=== PATIENT | male | born 1990 | race Caucasian/White ===

== ENCOUNTER 2017-04-27 04:07 | Emergency (ER) | payer OTHER ==
[2017-04-27] MEDS ORDERED: SUMAtriptan 6 MG/0.5 ML VIAL SC ONE (04:40)
--- NOTE | 2017-04-27 04:43 | EDPHY ---
H & P Stated Complaint: migraine aura since 2 am, nausea, shakey Time Seen by Provider: 04/27/17 04:30 HPI/ROS: CHIEF COMPLAINT: Migraine HISTORY OF PRESENT ILLNESS: Patient is a 26-year-old man who comes to the emergency department complaining of an aura and migraine. He states that he has these only a few times a year. Today however the aura has come and gone 3 times. His aura manifests as light discoloration in the shape of a backwards C in both eyes. It lasts for about 20 minutes at a time. He did develop a headache that almost completely resolved with ibuprofen but is still having auras intermittently. New neck pain or stiffness. He denies fevers. He denies injury. REVIEW OF SYSTEMS: Constitutional: denies: chills, fever, recent illness, recent injury EENTM: denies: blurred vision, double vision, nose congestion Respiratory: denies: cough, shortness of breath Cardiac: denies: chest pain, irregular heart rate, lightheadedness, palpitations Gastrointestinal/Abdominal: denies: abdominal pain, diarrhea, nausea, vomiting, blood streaked stools Genitourinary: denies: dysuria, frequency, hematuria, pain Musculoskeletal: denies: joint pain, muscle pain Skin: denies: lesions, rash, jaundice, bruising Neurological: See HPI denies: numbness, paresthesia, tingling, dizziness, weakness Hematologic/Lymphatic: denies: blood clots, easy bleeding, easy bruising Immunologic/allergic: denies: HIV/AIDS, transplant EXAM: GENERAL: Well-appearing, well-nourished and in no acute distress. HEAD: Atraumatic, normocephalic. EYES: Pupils equal round and reactive to light, extraocular movements intact, sclera anicteric, conjunctiva are normal. Retina appear Normal ENT: TMs normal, nares patent, oropharynx clear without exudates. Moist mucous membranes. NECK: Normal range of motion, supple without lymphadenopathy or JVD. LUNGS: Breath sounds clear to auscultation bilaterally and equal. No wheezes rales or rhonchi. HEART: Regular rate and rhythm without murmurs, rubs or gallops. ABDOMEN: Soft, nontender, normoactive bowel sounds. No guarding, no rebound. No masses appreciated. BACK: No CVA tenderness, no spinal tenderness, step-offs or deformities EXTREMITIES: Normal range of motion, no pitting or edema. No clubbing or cyanosis. NEUROLOGICAL: Cranial nerves II through XII grossly intact. Normal speech, normal gait. 5/5 strength, normal movement in all extremities, normal sensation , negative Romberg, no primary drift PSYCH: Normal mood, normal affect. SKIN: Warm, dry, normal turgor, no visible rashes or lesions. Source: Patient Exam Limitations: No limitations - Personal History Current Tetanus/Diphtheria Vaccine: Unsure Current Tetanus Diphtheria and Acellular Pertussis (TDAP): Unsure - Medical/Surgical History Hx Asthma: No Hx Chronic Respiratory Disease: No Hx Diabetes: No Hx Cardiac Disease: No Hx Renal Disease: No Hx Cirrhosis: No Hx Alcoholism: No Hx HIV/AIDS: No Hx Splenectomy or Spleen Trauma: No Other PMH: migraines - Family History Significant Family History: No pertinent family hx - Social History Smoking Status: Former smoker Alcohol Use: Sober Drug Use: None Constitutional: Initial Vital Signs Temperature (C) 36.4 C 04/27/17 04:09 Heart Rate 92 04/27/17 04:09 Respiratory Rate 18 04/27/17 04:09 Blood Pressure 142/95 H 04/27/17 04:09 O2 Sat (%) 97 04/27/17 04:09 O2 Delivery Mode Room Air Allergies/Adverse Reactions: No Known Allergies Allergy (Unverified 04/27/17 04:12) Home Medications: Medication Instructions Recorded NK [No Known Home Meds] 04/27/17 Medical Decision Making ED Course/Re-evaluation: 5:15 a.m. the patient is feeling somewhat better although he still has an aura occasionally. He is requesting to go home. His exam and vital signs remained stable. I will discharge her with Phenergan that he may take when he gets home. He is happy with this plan and declines further testing. Differential Diagnosis: Partial list of the Differential diagnosis considered include but were not limited to; migraine aura, headache, tension headache, infection and although unlikely based on the history and physical exam, I also considered trauma, stroke, seizure, aneurysm, cancer. I discussed these differential diagnoses and the plan with the patient as well as the usual and expected course. The patient understands that the diagnosis is provisional and that in medicine we are not always correct and that further workup is often warranted. Usual and customary warnings were given. All of the patient's questions were answered. The patient was instructed to return to the emergency department should the symptoms at all worsen or return, otherwise to followup with the physician as we discussed. - Data Points Laboratory Results: 04/27/17 04:45 POC Glucose 118 mg/dL H mg/dL (70-100) Medications Given: Discontinued Medications Promethazine HCl (Phenergan 25 Mg Prepack #4) 1 btl TAKEHOME EDNOW ONE Stop: 04/27/17 05:15 Last Admin: 04/27/17 05:33 Dose: 1 btl Sumatriptan Succinate (Imitrex Sc Injection) 6 mg SC EDNOW ONE Stop: 04/27/17 04:41 Last Admin: 04/27/17 04:54 Dose: 6 mg Point of Care Test Results: 04/27/17 04:45 POC Glucose 118 H Departure - Departure Disposition: Home, Routine, Self-Care Clinical Impression: Migraine Qualifiers: Migraine type: with aura Status migrainosus presence: without status migrainosus Intractability: not intractable Qualified Code(s): G43.109 - Migraine with aura, not intractable, without status migrainosus Condition: Fair Instructions: Promethazine (By injection), Migraine Headache (ED) Referrals: BRAYAN LEIJA [Primary Care Provider] - As per Instructions
[2017-04-27] MEDS ORDERED: PROMETHAZINE 25 MG PREPACK #4 BTL TAKEHOME ONE (05:14)
[2017-04-27 05:37] VITALS: BP 135/71; PULSE 76; RESP 16; TEMP 98.1; O2SAT 96
== END 2017-04-27 05:36 | disposition home or self-care (01) ==
DX: G43.109 Migraine with aura, not intractable, without status migrainosus (principal); Z87.891 Personal history of nicotine dependence
CPT/HCPCS: J3030